=== PATIENT | male | born 1990 | race Caucasian/White ===

== ENCOUNTER → 2020-12-26 12:14 | Outpatient (BNVA) | payer OTHER, SELFPAY | PROVIDERS: Family Provider Nurse Practitioner Family; PCP Nurse Practitioner Family; Visit Provider Registered Nurse Neonatal Intensive Care | DX: R50.9 Fever, unspecified (principal) | CPT/HCPCS: 87635 ==

== ENCOUNTER 2023-01-19 11:52 | Outpatient (CLI) | payer OTHER, SELFPAY ==
--- NOTE | 2023-01-19 | ECG_ITS ---
[facility] Test Date: 2023-01-19 Pat Name: Surya Gonzalez Department: Room: Gender: Male Sign Builder: : 1990 Requested By: Rekha Ahmadi Order Number: [id number] Ayala MD: Nga Castillo M.D. Interpretive Statements NAME OF STUDY: TREADMILL STRESS TEST INDICATION: Chest Pain Baseline blood pressure of 135/105 mm Hg, heart rate of 76 beats per minute and oxygen saturation 98%. EKG showed sinus rhythm, normal axis with normal ST-Ts. The patient exercised for 9minutes 19 seconds on a standard Jose protocol. Patient attained a maximum heart rate of 179 beats per minute(95% of the maximum predicted heart rate) with a blood pressure at the peak exercise of 160/74 mm Hg oxygen saturation of 98%. The EKG at the peak exercise revealed sinus tachycardia with no significant ST-T wave changes. Patient did not have any chest pain or any significant arrhythmis with the exercise During the recovery phase, there were no new changes. Blood pressure at the end of the recovery phase was 143/65 mm Hg with a heart rate of 112 beats per minute oxygen saturation of 98%. CONCLUSION: 1. Normal EKG response to treadmill exercise. 2. No exercise-induced chest pain or cardiac arrhythmia. 3. Excellent exercise tolerance, attained a maximum of 13.5 METs. Total VO2 of 47.3 mL/kg/min. 4. Baseline hypertension with normal response to exercise. Electronically Signed On 01-25-2023 17:41:46 CDT by Nga Castillo M.D. [id number]
[2023-01-19 12:06] VITALS: BMI 35.4
[2023-01-19 12:49] VITALS: BP 133/65; PULSE 110
== END 2023-01-19 11:53 | disposition home or self-care (01) ==
LOC: CDL 11:52
PROVIDERS: PCP Family Medicine; Visit Provider Registered Nurse
DX: R07.9 Chest pain, unspecified (principal)
CPT/HCPCS: 93017